=== PATIENT | male | born 1995 | race Caucasian/White ===

== ENCOUNTER → 2018-03-25 | Outpatient (CLI) | payer BC ==
--- NOTE | 2018-03-25 19:54 | DIAGNOSTIC IMAGING REPORT ---
L UPPER EXT JOINT WITHOUT CLINICAL HISTORY: S43.015A pain TECHNIQUE: Multi axial MRI acquisition COMPARISON STUDY: None FINDINGS: Signal characteristics of the bony structures are unremarkable. There is a subtle Hill-Sachs type deformity posterior lateral aspect humeral head. The rotator cuff is intact. There is no evidence for rotator cuff tear. The acromioclavicular joint is intact. There is no evidence for impingement. The biceps tendon is intact within the bicipital groove. Superior and inferior glenoid labrum is unremarkable. There is moderate lobulation of the anterior labrum presumably on a postoperative basis. IMPRESSION: 1. Mild Hill-Sachs deformity of the posterior lateral aspect of the humeral head. 2. Mild postoperative lobulation anterior glenoid labrum with no acute labral tear identified. 3. No evidence for rotator cuff tear. 4. Study is otherwise normal. The above report was generated using voice recognition software. It may contain grammatical, syntax or spelling errors. Electronically signed by: Tyrell Cruz M.D. 03/25/2018 7:52 PM Dictated Date/Time: 03/25/2018 7:48 PM
== END | disposition home or self-care (01) ==
LOC: C.MRI 18:50
PROVIDERS: ATTEND Internal Medicine
DX: S43.015A Anterior dislocation of left humerus, initial encounter (principal); X58.XXXA Exposure to other specified factors, initial encounter